=== PATIENT | female | born 1970 | race Caucasian/White ===

== ENCOUNTER 2017-03-13 10:55 | Outpatient (RCR) | payer BC | END 2017-03-28 11:56 | disposition home or self-care (01) | LOC: PT 10:55 | DX: S92.215D Nondisplaced fracture of cuboid bone of left foot, subsequent encounter for fracture with routine healing (principal) ==

== ENCOUNTER → 2017-11-26 | Outpatient (CLI) | payer BC | LOC: RAD 16:56 | DX: M79.605 Pain in left leg (principal) ==

== ENCOUNTER 2017-12-03 16:00 | Outpatient (RCR) | payer BC | END 2017-12-03 16:30 | disposition home or self-care (01) | LOC: PT 16:00 | DX: M76.822 Posterior tibial tendinitis, left leg (principal) ==